=== PATIENT | female | born 1960 | race Caucasian/White ===

== ENCOUNTER 2017-08-22 16:52 | Emergency (ER) | payer OTHER ==
[2017-08-22 17:20] VITALS: BP 136/78; PULSE 85; TEMP 99.4; BMI 31.2
--- NOTE | 2017-08-22 17:20 | PDOC ---
Rapid Medical Evaluation Chief Complaint: Cold Symptoms Time Seen by Provider: 08/22/17 17:17 Medical Evaluation: Allergies Allergy/AdvReac Type Severity Reaction Status Date / Time No Known Allergies Allergy Verified 08/22/17 17:17 08/22/17 17:17 Pt presents to the ED with complaints of: cough, fever, headache and myalgia x 3 days On brief exam: vss, lcta, no erythema to soft palate Pt ordered for: influenza Pt to proceed to the ED Discharge Disposition - Diagnosis Cough - Referrals - Patient Instructions - Post Discharge Activity
--- NOTE | 2017-08-22 18:55 | PDOC ---
History of Present Illness - General Chief Complaint: Cold Symptoms Stated Complaint: FEVER/COUGHING Time Seen by Provider: 08/22/17 17:17 - History of Present Illness Initial Comments: 08/22/17 18:49 CHIEF COMPLAINT: cold symptoms HISTORY OF PRESENT ILLNESS: 56 yo F with hx of HTN presents to [facility] with cough, headache, body aches, and fever x 2 days. Patient denies any runny nose or sneezing. Patient's grandson has had similar symptoms although patient denies "getting this from him." Patient denies any fever, chills, nausea, vomiting, diarrhea, and reports that she did get the flu shot this year. PAST MEDICAL HISTORY: HTN FAMILY HISTORY: Denies SOCIAL HISTORY: Denies tobacco, alcohol, illicit drug use. SURGICAL HISTORY: Denies ALLERGIES: No known drug allergies REVIEW OF SYSTEMS General/Constitutional: Fever x 2 days, generalized malaise. HEENT: Denies change in vision. Denies ear pain or discharge. Denies sore throat. Cardiovascular: Denies chest pain or shortness of breath. Respiratory: Cough x 2 days. Denies wheezing, or hemoptysis. Gastrointestinal: Denies nausea, vomiting, diarrhea. Genitourinary: Denies dysuria, frequency, or change in urination. Musculoskeletal: Body aches. Denies joint or muscle swelling. Denies neck or back pain. Skin: Denies rash. Neurologic: Headache. Denies vertigo, loss of consciousness, or loss of sensation. PHYSICAL EXAM General Appearance: Well-appearing, appropriately dressed. No apparent distress. HEENT: Erythematous orpharynx. EOMI, PERRLA, normal ENT inspection, normal voice , TMs normal, pharynx normal. No conjunctival pallor. No photophobia, scleral icterus. Respiratory/Chest: Lungs CTAB. No shortness of breath, chest tenderness, respiratory distress, accessory muscle use. No crackles, rales, rhonchi, stridor , wheezing, dullness Cardiovascular: RRR. S1, S2. Gastrointestinal/Abdominal: Normal bowel sounds. Abdomen soft, non-distended. No tenderness or rebound tenderness. No organomegaly, pulsatile mass, guarding , hernia, hepatomegaly, splenomegaly. Musculoskeletal/Extremities: Normal inspection. FROM of all extremities, normal capillary refill. Pelvis Stable. No CVA tenderness. No tenderness to extremities, pedal edema, swelling, erythema or deformity. Integumentary: Appropriate color, dry, warm. No cyanosis, erythema, jaundice or rash Neurologic: protohistorian II-XII intact. Fully oriented, alert. Appropriate mood/affect. Motor strength 5/5. No appreciable EOM palsy, facial droop or sensory deficit. Past History - Past Medical History Allergies/Adverse Reactions: Allergies Allergy/AdvReac Type Severity Reaction Status Date / Time No Known Allergies Allergy Verified 08/22/17 17:17 Home Medications: Ambulatory Orders Sumatriptan Succinate [Imitrex] 50 mg PO PRN PRN 02/16/12 Hydrochlorothiazide 25 mg PO DAILY 03/04/13 Ibuprofen [Motrin] 600 mg PO TID #14 tablet 03/04/13 Ibuprofen 400 mg PO QID PRN #28 tablet 08/22/17 Oseltamivir Phosphate [Tamiflu] 75 mg PO BID #10 capsule 08/22/17 COPD: No HTN: Yes Other medical history: migraines - Suicide/Smoking/Psychosocial Hx Smoking Status: No Smoking History: Former smoker Have you smoked in the past 12 months: No Number of Cigarettes Smoked Daily: 0 Information on smoking cessation initiated: No Hx Alcohol Use: No Drug/Substance Use Hx: No Substance Use Type: None *Physical Exam - Vital Signs Last Vital Signs Temp Pulse Resp BP Pulse Ox 99.4 F 85 18 136/78 100 08/22/17 17:17 08/22/17 17:17 08/22/17 17:17 08/22/17 17:17 08/22/17 17:17 ED Treatment Course - ADDITIONAL ORDERS Additional order review: 08/22/17 17:17 Influenza Types A,B Antigen (JOVANY) - Final Nasopharyngeal Swab - Final Medical Decision Making - Medical Decision Making 08/22/17 18:55 56 yo F with hx of HTN presents to [facility] with cough, headache, body aches , and fever x 2 days. -flu swab patient positive for flu tamiflu rx sent to pharm Advised patient to take medication as prescribed and follow up with PCP next week. Advised patient of signs and symptoms for return to ED. Patient verbalized understanding and agrees to plan. *DC/Admit/Observation/Transfer Diagnosis at time of Disposition: Cough, Influenza - Discharge Dispostion Disposition: HOME Condition at time of disposition: Stable Admit: No - Prescriptions Prescriptions: Ibuprofen 400 mg PO QID PRN #28 tablet PRN Reason: Fever Oseltamivir Phosphate [Tamiflu] 75 mg PO BID #10 capsule - Referrals - Patient Instructions Printed Discharge Instructions: DI for Influenza -- Adult Additional Instructions: Please take medications as prescribed and follow up with your primary care doctor by the next of week. Please get plenty of rest and stay well hydrated. If you develop fever that is unrelieved by Motrin or Tylenol, persistent vomiting, diarrhea or any new or worsening symptoms, please return to the ER immediately. - Post Discharge Activity
== END 2017-08-22 19:04 | disposition home or self-care (01) ==
LOC: JERFT 16:52
DX: J10.1 Influenza due to other identified influenza virus with other respiratory manifestations (principal); I10 Essential (primary) hypertension
CPT/HCPCS: 87804; 99281-25

== ENCOUNTER 2017-08-26 17:37 | Emergency (ER) | payer OTHER ==
[2017-08-26 17:45] VITALS: BP 125/69; PULSE 88; TEMP 100.6; BMI 31.2
[2017-08-26] MEDS ORDERED: IBUPROFEN 600 MG TABLET (FP) PO ONE ×2 (17:45→18:08)
--- NOTE | 2017-08-26 17:45 | PDOC ---
Rapid Medical Evaluation Time Seen by Provider: 08/26/17 17:41 Medical Evaluation: Allergies Allergy/AdvReac Type Severity Reaction Status Date / Time No Known Allergies Allergy Verified 08/22/17 17:17 08/26/17 17:41 The patient presents with a chief complaint of: Diagnosed with flu on Friday. Had fevers yesterday up to 103. States that she is congested and having trouble breathing. Admits to coughing and body aches. Denies nausea and vomiting. I have performed a brief in-person evaluation of this patient; Pertinent physical exam findings: course lung sounds, temp 100.6 I have ordered the following: Motrin, CXR The patient will proceed to the ED for further evaluation.
[2017-08-26] MEDS ORDERED: ALBUTEROL SO4 2.5/IPRATROPIUM 0.5 INH SOL 3 ML VIAL.NEB. NEB ONE ×2 (18:08)
--- NOTE | 2017-08-26 18:11 | PDOC ---
History of Present Illness - General Chief Complaint: Cold Symptoms Stated Complaint: COLD SYMPTOMS,DIFF. BREATHING Time Seen by Provider: 08/26/17 17:41 History Source: Patient Exam Limitations: No Limitations - History of Present Illness Initial Comments: 08/26/17 18:06 56 yr female history of HTN, presents with cough for 3 days dx with influenza on 08/22/17 started tamilfu. Pt states cough is worse and feels SOB. no vomiting no chest pain. Timing/Duration: reports: getting worse Severity: reports: moderate Past History - Past Medical History Allergies/Adverse Reactions: Allergies Allergy/AdvReac Type Severity Reaction Status Date / Time No Known Allergies Allergy Verified 08/26/17 17:45 Home Medications: Ambulatory Orders Sumatriptan Succinate [Imitrex] 50 mg PO PRN PRN 02/16/12 Hydrochlorothiazide 25 mg PO DAILY 03/04/13 Ibuprofen [Motrin] 600 mg PO TID #14 tablet 03/04/13 Ibuprofen 400 mg PO QID PRN #28 tablet 08/22/17 Oseltamivir Phosphate [Tamiflu] 75 mg PO BID #10 capsule 08/22/17 Albuterol Sulfate Inhaler - [Ventolin HFA Inhaler -] 1 - 2 inh PO QID #1 inhaler 08/26/17 Azithromycin [Zithromax 250mg Tablets -] 250 mg PO UTDICT #6 tab 08/26/17 COPD: No (previous smoker 27yrs ago quit ) HTN: Yes Other medical history: migrane - Suicide/Smoking/Psychosocial Hx Smoking Status: No Smoking History: Never smoked Have you smoked in the past 12 months: No Number of Cigarettes Smoked Daily: 0 Information on smoking cessation initiated: No Hx Alcohol Use: No Drug/Substance Use Hx: No Substance Use Type: None Review of Systems - Review of Systems Able to Perform ROS?: Yes Is the patient limited Cambodian proficient: No Constitutional: Yes: Symptoms Reported, Fever Respiratory: Yes: Cough, Shortness of Breath, Productive cough *Physical Exam - Vital Signs Last Vital Signs Temp Pulse Resp BP Pulse Ox 100.6 F H 88 18 125/69 95 08/26/17 17:42 08/26/17 17:42 08/26/17 17:42 08/26/17 17:42 08/26/17 17:42 - Physical Exam General Appearance: Yes: Nourished, Appropriately Dressed HEENT: positive: EOMI, CLAUDIO, Normal ENT Inspection, TMs Normal, Pharynx Normal Neck: positive: Supple. negative: Lymphadenopathy (R), Lymphadenopathy (L) Respiratory/Chest: positive: Crackles (left lower base ) Cardiovascular: positive: Regular Rhythm, Regular Rate Gastrointestinal/Abdominal: positive: Normal Bowel Sounds, Soft Musculoskeletal: positive: Normal Inspection Extremity: positive: Normal Capillary Refill, Normal Inspection, Normal Range of Motion Integumentary: positive: Normal Color, Dry, Warm Neurologic: positive: bobbin fixer II-XII NML intact, Fully Oriented, Alert, Normal Mood/ Affect, Normal Response, Motor Strength 12/20 Medical Decision Making - Medical Decision Making 08/26/17 18:10 cc: cough short of breath dx with flu 4 days ago on tamiflu CXR ordered from E will give duoneb for coarse lung sounds and crackles to left lower base 08/26/17 19:09 pt feels better after the nebulizer cxr is negative for PNA will treat for bronchitis pt aware of plan all questions asked and answered understands to follow up with PMD as discussed. *DC/Admit/Observation/Transfer Diagnosis at time of Disposition: Bronchitis - Discharge Dispostion Disposition: HOME Condition at time of disposition: Good - Prescriptions Prescriptions: Albuterol Sulfate Inhaler - [Ventolin HFA Inhaler -] 1 - 2 inh PO QID #1 inhaler Azithromycin [Zithromax 250mg Tablets -] 250 mg PO UTDICT #6 tab - Referrals Referrals: STAFF,NOT ON [Primary Care Provider] - - Patient Instructions Additional Instructions: take the zpack as directed drink at least 2 liters of water a day take ibuprofen 600-800mg every 6-8hrs for fever and/or pain increase vitamin C and Zinc intake please see your primary care doctor in 1-2 days for follow up Return to ER for any worsening symptoms - Post Discharge Activity
== END 2017-08-26 19:10 | disposition home or self-care (01) ==
LOC: JERFT 17:37
PROC: 3E0F7GC Introduction of Other Therapeutic Substance into Respiratory Tract, Via Natural or Artificial Opening (ICD-10-PCS; principal; 2017-08-26)
DX: J40 Bronchitis, not specified as acute or chronic (principal)
CPT/HCPCS: 71046-TC; 94640; 99281-25

== ENCOUNTER 2018-08-04 04:55 | Emergency (ER) | payer OTHER ==
--- NOTE | 2018-08-04 05:26 | PDOC ---
History of Present Illness - General Chief Complaint: Pain Stated Complaint: FEVER,ABD PAIN Time Seen by Provider: 08/04/18 05:25 - History of Present Illness Initial Comments: 08/04/18 06:36 The patient is a 57 year old female with a history of HTN who presents for evaluation of fever, body aches, diarrhea, abdominal pain. The patient notes a 1 day history of fever, body aches, diarrhea, and crampy upper abdominal pain prompting her presentation to the ED for further evaluation. She notes that her [id number] is ill with similar symptoms including a cough as well. She endorses some mild headache and chills as well. The patient otherwise denies SOB, chest pain, cough, nausea, vomiting, or changes with urination or bowel movements. Past History - Past Medical History Allergies/Adverse Reactions: Allergies Allergy/AdvReac Type Severity Reaction Status Date / Time No Known Allergies Allergy Verified 08/04/18 05:31 Home Medications: Ambulatory Orders Sumatriptan Succinate [Imitrex] 50 mg PO PRN PRN 02/16/12 Hydrochlorothiazide 25 mg PO DAILY 03/04/13 Albuterol Sulfate Inhaler - [Ventolin HFA Inhaler -] 1 - 2 inh PO QID #1 inhaler 08/26/17 COPD: No (previous smoker 27yrs ago quit ) HTN: Yes - Suicide/Smoking/Psychosocial Hx Smoking Status: No Smoking History: Never smoked Have you smoked in the past 12 months: No Number of Cigarettes Smoked Daily: 0 Hx Alcohol Use: No Drug/Substance Use Hx: No Substance Use Type: None Review of Systems - Review of Systems Comments:: 08/04/18 06:38 Constitutional: Fevers, chills, fatigue, malaise HEENT: No Rhinorrhea, nasal congestion, visual changes, or Neck [place] Cardiovascular: No chest pain, syncope, palpitations, lightheadedness Respiratory: No Cough, SOB, Hemoptysis, Gastrointestinal: Abdominal cramping, Diarrhea. No Nausea, Vomiting, Constipation, Melena Genitourinary: No Dysuria, Frequency, Urgency, Hesitancy, Hematuria, Flank pain Musculoskeletal: No Myalgia, arthralgia Skin: No rashes, itching, bruising, pallor Neurologic: Headache. No Dizziness, Numbness, Weakness, or Tingling Psychiatric: No Hallucinations. No SI or HI *Physical Exam - Physical Exam Comments: 08/04/18 06:39 General Appearance: Nourished. No Apparent Distress HEENT: No Pharyngeal Erythema, Tonsillar Exudate, Tonsillar Erythema Neck: Neck is supple. No Cervical Lymphadenopathy Respiratory/Chest: Lungs Clear, Normal Breath Sounds. No Crackles, Rales, Rhonchi, Wheezing Cardiovascular: Regular Rhythm, Regular Rate. No Murmur, Gallops, Rubs Gastrointestinal/Abdominal: Normal Bowel Sounds, Soft. No Guarding, Rebound, Tenderness Musculoskeletal: No CVA Tenderness Extremity: Normal Capillary Refill Integumentary: Normal Color, Dry, Warm Neurologic: Fully Oriented, Alert, Normal Mood/Affect, Normal Response, ED Treatment Course - LABORATORY CBC & Chemistry Diagram: 08/04/18 05:20 08/04/18 05:20 Medical Decision Making - Medical Decision Making 08/04/18 06:40 The patient is a 57 year old female with a history of HTN who presents for evaluation of fever, body aches, diarrhea, abdominal pain. Differential includes but is not limited to: Influenza, UTI, Pneumonia, Gastroenteritis, Infectious, Metabolic Derangement. Given the patient's history and physical exam, her symptoms appear very viral in nature. However, we will obtain a cbc, cmp, lipase, ua, influenza swab to evaluate further. We will treat the patient with iv fluids, pepcid, mylanta, tylenol and continue to monitor and reassess while here in the ED. 08/04/18 06:55 Patient signed out to the day team pending lab results and gallbladder US and reassessment prior to dispo. *DC/Admit/Observation/Transfer Diagnosis at time of Disposition: Gastroenteritis and colitis, viral - Discharge Dispostion Disposition: HOME Condition at time of disposition: Improved - Referrals Referrals: Shravan Edmond MD [Staff Physician] - - Patient Instructions Printed Discharge Instructions: Viral Gastroenteritis, DI for Viral Gastroenteritis -- Adult Additional Instructions: Please follow up with your GI doctor in the next few weeks. Please return if you have any new, worsening or concerning symptoms, especially pain and increasing fever. - Post Discharge Activity
[2018-08-04 05:30] VITALS: BMI 30.7
[2018-08-04] MEDS ORDERED: SODIUM CHLORIDE 1,000 ML IV STA (05:53)
[2018-08-04] MEDS ORDERED: ACETAMINOPHEN 1000 MG/100 ML VIAL (NON FORMULARY) IVPB ONE (05:53)
[2018-08-04] MEDS ORDERED: ACETAMINOPHEN INJECTION 100 ML IVPB ONE (06:22)
[2018-08-04] MEDS ORDERED: MAG HYDROX/AL HYDROX/SIMETH 30 ML UNIT-DOSE CUP PO ONE (06:39)
[2018-08-04] MEDS ORDERED: FAMOTIDINE 20 MG/50 ML IVPB 20 MG/50 ML MG IVPB ONE ×2 (06:39→06:58)
[2018-08-04 06:47] LABS: BASO % 0.2 % (0-2.0); HEMOGLOBIN 13.8 GM/dL (10.7-15.3); LYMPH % 9.1 % (8-40); MCH 32.3 pg (25.7-33.7); MCHC 35.4 g/dl (32.0-36.0); MEAN CELL VOLUME 91.1 fl (80-96); MEAN PLT VOLUME 8.4 fl (7.5-11.1); MONO % 4.6 % (3.8-10.2); NEUT % 86.1 % (42.8-82.8); PLATELET COUNT 165 K/MM3 (134-434); RBC 4.28 M/mm3 (3.60-5.2); WHITE BLOOD COUNT 11.1 K/mm3 (4.0-10.0)
--- NOTE | 2018-08-04 06:55 | PDOC ---
Attending Attestation - Resident Resident Name: Se Ferrara - ED Attending Attestation I have performed the following: I have examined & evaluated the patient, The case was reviewed & discussed with the resident, I agree w/resident's findings & plan, Exceptions are as noted - HPI HPI: 08/04/18 06:55 57 F with h/o HTN presents to ED with fevers, bodyaches, diarrhea, and abdominal pain. Pt states that this all started yesterday. She reports watery brown diarrhea with abdominal cramps. The pain is localized to her epigastrum. Denies N/V. Denies CP/SOB. Denies dysuria. - Physicial Exam PE: 08/04/18 06:56 "GENERAL: Awake, alert, and fully oriented, in no acute distress. HEAD: No signs of trauma EYES: PERRLA, EOMI, sclera anicteric, conjunctiva clear ENT: Auricles normal inspection, hearing grossly normal, nares patent, oropharynx clear without exudates. Moist mucosa NECK: Nontender, no stepoffs, Normal ROM, supple, no lymphadenopathy, JVD, or masses LUNGS: Breath sounds equal, clear to auscultation bilaterally. No wheezes, and no crackles HEART: Regular rate and rhythm, normal S1 and S2, no murmurs, rubs or gallops ABDOMEN: + epigastric tenderness, no rebound/guarding, negative santana's, no CVAT EXTREMITIES: Normal range of motion, no edema. No clubbing or cyanosis. No cords, erythema, or tenderness NEUROLOGICAL: Cranial nerves II through XII intact. 5/5 strength and sensation in all extremities, Normal speech, normal gait, normal cerebellar function SKIN: Warm, Dry, normal turgor, no rashes or lesions noted. - Medical Decision Making 08/04/18 06:57 57 F with fevers, bodyaches, diarrhea. Likely viral illness. Will check labs, urine, and CXR to r/o other infectious process. - Labs - CXR, UA - IVF, tylenol - RUQ sono to r/o chad Pt signed out to oncoming attending, pending labs, US, and re-evaluation
[2018-08-04] MEDS ORDERED: MAG HYDROX/AL HYDROX/SIMETH 30 ML UNIT-DOSE CUP ONE (06:58)
[2018-08-04 07:31] LABS: ALBUMIN 3.6 g/dl (3.4-5.0); ALK PHOS 68 U/L (45-117); ANION GAP 9 MMOL/L (8-16); BILIRUBIN,TOTAL 0.7 mg/dL (0.2-1); BLOOD UREA NITROGEN 14 mg/dL (7-18); CALCIUM 8.4 mg/dL (8.5-10.1); CHLORIDE 100 mmol/L (98-107); CO2 27 mmol/L (21-32); CREATININE 0.9 mg/dL (0.55-1.3); GLUCOSE,RANDOM 128 mg/dL (74-106); LIPASE 104 U/L (73-393); POTASSIUM 3.2 mmol/L (3.5-5.1); SGOT/AST 34 U/L (15-37); SGPT/ALT 36 U/L (13-61); SODIUM 135 mmol/L (136-145); TOT PROT 7.5 g/dl (6.4-8.2)
[2018-08-04 08:06] LABS: URINE APPEARANCE SLCLOUDY; URINE BILIRUBIN NEGATIVE (<2.0 mg/dL); URINE COLOR DKYELLOW; URINE GLUCOSE (UA) NEGATIVE (NEGATIVE); URINE KETONE 1+ (NEGATIVE); URINE LEUK ESTERASE NEGATIVE (NEGATIVE); URINE NITRITE NEGATIVE (NEGATIVE); URINE PROTEIN 1+ (NEGATIVE); URINE UROBILINOGEN NEGATIVE mg/dL (0.2-1.0)
--- NOTE | 2018-08-04 08:38 | PDOC ---
*Physical Exam - Vital Signs Last Vital Signs Temp Pulse Resp BP Pulse Ox 102.2 F H 108 H 20 134/77 96 08/04/18 04:55 08/04/18 04:55 08/04/18 04:55 08/04/18 04:55 08/04/18 06:32 - Physical Exam General Appearance: Yes: Nourished HEENT: positive: CLAUDIO Neck: positive: Trachea midline Respiratory/Chest: positive: Lungs Clear, Normal Breath Sounds Cardiovascular: positive: Regular Rhythm, Regular Rate, S1, S2 Gastrointestinal/Abdominal: positive: Normal Bowel Sounds, Tender (mild epigastric ttp neg tubbs's), Flat, Soft Musculoskeletal: positive: Normal Inspection. negative: CVA Tenderness Extremity: positive: Normal Capillary Refill, Normal Inspection Integumentary: positive: Normal Color, Dry, Warm Neurologic: positive: aviation boatswain's mate II-XII NML intact, Fully Oriented, Alert ED Treatment Course - LABORATORY CBC & Chemistry Diagram: 08/04/18 05:20 08/04/18 05:20 - ADDITIONAL ORDERS Additional order review: Laboratory Results 08/04/18 05:20 Sodium 135 L Potassium 3.2 L Chloride 100 Carbon Dioxide 27 Anion Gap 9 BUN 14 Creatinine 0.9 Creat Clearance w eGFR > 60 Random Glucose 128 H Calcium 8.4 L Total Bilirubin 0.7 AST 34 ALT 36 Alkaline Phosphatase 68 Total Protein 7.5 Albumin 3.6 Lipase 104 08/04/18 05:20 RBC 4.28 MCV 91.1 MCHC 35.4 RDW 13.0 MPV 8.4 Neutrophils % 86.1 H D Lymphocytes % 9.1 D Monocytes % 4.6 Eosinophils % 0.0 D Basophils % 0.2 - Medications Given in the ED: ED Medications Discontinued Medications Generic Name Dose Route Start Last Admin Trade Name Freq PRN Reason Stop Dose Admin Acetaminophen 1,000 mg 08/04/18 05:53 08/04/18 06:28 Ofirmev Injection - IVPB 08/04/18 05:54 1,000 mg ONCE ONE Administration Al Hydroxide/Mg Hydroxide 30 ml 08/04/18 06:39 08/04/18 07:01 Mylanta Oral Suspension - PO 08/04/18 06:40 30 ml ONCE ONE Administration Sodium Chloride 1,000 mls @ 1,000 mls/hr 08/04/18 05:53 12/18/18 06:28 Normal Saline - IV 08/04/18 06:52 1,000 mls/hr ASDIR STA Administration Famotidine/Sodium Chloride 20 mg in 50 mls @ 100 mls/hr 08/04/18 06:39 07:01 Pepcid 20 Mg Premixed Ivpb - IVPB 08/04/18 07:08 100 mls/hr ONCE ONE Administration Medical Decision Making - Medical Decision Making 08/04/18 08:31 57-year-old female no past medical history here today complaining of fever cramping epigastric abdominal pain and diarrhea. Patient states she's had 3-4 loose stools a day all nonbloody nonbilious no recent travel no recent antibiotic use patient does have a sick contact of a young child with a viral URI. Patient was signed out to me by the overnight physician Dr. Mccain. Pending lab results and urinalysis. On exam she is awake alert no acute distress overall feels much improved has minimal epigastric tenderness on exam a negative Tubbs's. No CVA tenderness otherwise unremarkable abdominal exam cardiac lung exam is unremarkable as well Labs reviewed patient has a min elevated wbc 11. and normal lipase and normal LFTs. Urinalysis is pending Focus ED ultrasound right upper quadrant was obtained, indication: epigastric pain, fever findings: phased array probe used to scan the gallbladder into planes gallbladder is normal without gallbladder wall thickening, edema, pericholecystic fluid, or stones. Negative sonographic Tubbs's. Anterior Gallbladder wall measures 1.8 mm. CBD measures 2.8 mm. Impression: normal gallbladder Pending urinalysis if negative will DC patient home 08/04/18 08:39 *DC/Admit/Observation/Transfer Diagnosis at time of Disposition: Gastroenteritis and colitis, viral - Discharge Dispostion Condition at time of disposition: Improved - Referrals Referrals: ON STAFF,NOT [Primary Care Provider] - - Patient Instructions - Post Discharge Activity Procedures - Bedside Ultrasound Bedside Ultrasound: Gallbladder Other: see MDM cont care for impression findings
[2018-08-04 08:40] LABS: EPI CELLS RARE /HPF (FEW); URINE HYALINE CAST 1 /lpf; URINE MUCUS MODERATE
--- NOTE | 2018-08-04 09:24 | PDOC ---
*Physical Exam - Vital Signs Last Vital Signs Temp Pulse Resp BP Pulse Ox 102.2 F H 108 H 20 134/77 96 08/04/18 04:55 08/04/18 04:55 08/04/18 04:55 08/04/18 04:55 08/04/18 06:32 ED Treatment Course - LABORATORY CBC & Chemistry Diagram: 08/04/18 05:20 08/04/18 05:20 - ADDITIONAL ORDERS Additional order review: Laboratory Results 08/04/18 08/04/18 07:51 05:20 Sodium 135 L Potassium 3.2 L Chloride 100 Carbon Dioxide 27 Anion Gap 9 BUN 14 Creatinine 0.9 Creat Clearance w eGFR > 60 Random Glucose 128 H Calcium 8.4 L Total Bilirubin 0.7 AST 34 ALT 36 Alkaline Phosphatase 68 Total Protein 7.5 Albumin 3.6 Lipase 104 Urine Color Dkyellow Urine Appearance Slcloudy Urine pH 5.0 Ur Specific [place] 1.026 Urine Protein 1+ H Urine Glucose (UA) Negative Urine Ketones 1+ H Urine Blood 3+ H Urine Nitrite Negative Urine Bilirubin Negative Urine Urobilinogen Negative Ur Leukocyte Esterase Negative Urine WBC (Auto) 6 Urine RBC (Auto) 24 Ur Epithelial Cells Rare Hyaline Casts 1 Urine Mucus Moderate 08/04/18 05:20 RBC 4.28 MCV 91.1 MCHC 35.4 RDW 13.0 MPV 8.4 Neutrophils % 86.1 H D Lymphocytes % 9.1 D Monocytes % 4.6 Eosinophils % 0.0 D Basophils % 0.2 - RADIOLOGY Radiology Studies Ordered: Category Date Time Status SPIRAL- RENAL-STONE CT [CT] Stat CT Scan 08/04/18 09:22 Ordered - Medications Given in the ED: ED Medications Discontinued Medications Generic Name Dose Route Start Last Admin Trade Name Pericoq PRN Reason Stop Dose Admin Acetaminophen 1,000 mg 08/04/18 05:53 08/04/18 06:28 Ofirmev Injection - IVPB 08/04/18 05:54 1,000 mg ONCE ONE Administration Al Hydroxide/Mg Hydroxide 30 ml 08/04/18 06:39 08/04/18 07:01 Mylanta Oral Suspension - PO 08/04/18 06:40 30 ml ONCE ONE Administration Sodium Chloride 1,000 mls @ 1,000 mls/hr 08/04/18 05:53 08/04/18 06:28 Normal Saline - IV 08/04/18 06:52 1,000 mls/hr ASDIR STA Administration Famotidine/Sodium Chloride 20 mg in 50 mls @ 100 mls/hr 08/04/18 06:39 07:01 Pepcid 20 Mg Premixed Ivpb - IVPB 08/04/18 07:08 100 mls/hr ONCE ONE Administration Medical Decision Making - Medical Decision Making 08/04/18 09:[address] Ferrara. Patient is 57F with bodyaches, fevers, and abdominal pain. No dysuria. POCUS with Dr Wu showed normal appearing gallbladder with no sonographic murphys, no gallstones, normal gallbladder thickness, no pericholecystic fluid, normal cbd diameter. UA shows hematuria, no signs of infection. Pain reassessed, soft and nontender abdomen, pain has improved. Will do ct to rule out kidney stone, as a stone complicated by fever would be troubling. Spiral CT ordered. 08/04/18 14:[address] shows abnormality, likely in lumen, in RLQ with surrounding lymph node enlargement. CT with IV/PO contrast ordered. Concern for possible ca vs appendicitis. 08/04/18 16:04 CT scan shows possible adenitis, colitis or possible polyp. Patient reports history of polyps, has own GI follow up. Will discharge with diagnosis of viral syndrome. Importance of follow up stressed. Patient complaining of minor headache. Giving tylenol before discharge. Tolerating PO. *DC/Admit/Observation/Transfer Diagnosis at time of Disposition: Gastroenteritis and colitis, viral - Discharge Dispostion Disposition: HOME Condition at time of disposition: Improved Decision to Admit order: No - Referrals Referrals: Shravan Edmond MD [Staff Physician] - - Patient Instructions Printed Discharge Instructions: Viral Gastroenteritis, DI for Viral Gastroenteritis -- Adult Additional Instructions: Please follow up with your GI doctor in the next few weeks. Please return if you have any new, worsening or concerning symptoms, especially pain and increasing fever. - Post Discharge Activity
[2018-08-04] MEDS ORDERED: ACETAMINOPHEN 325 MG TABLET (FP) PO ONE (16:08)
[2018-08-04] MEDS ORDERED: ACETAMINOPHEN 325 MG TABLET (FP) ONE (16:10)
[2018-08-04 16:21] VITALS: BP 129/77; PULSE 84; TEMP 98.7
== END 2018-08-04 16:21 | disposition home or self-care (01) ==
LOC: JER 04:55
PROC: 3E033GC Introduction of Other Therapeutic Substance into Peripheral Vein, Percutaneous Approach (ICD-10-PCS; principal; 2018-08-04)
PROC: 3E033NZ Introduction of Analgesics, Hypnotics, Sedatives into Peripheral Vein, Percutaneous Approach (ICD-10-PCS; 2018-08-04)
PROC: 3E0337Z Introduction of Electrolytic and Water Balance Substance into Peripheral Vein, Percutaneous Approach (ICD-10-PCS; 2018-08-04)
DX: A08.4 Viral intestinal infection, unspecified (principal); I10 Essential (primary) hypertension
CPT/HCPCS: 36415; 71045-TC-FY; 74176; 74177-TC; 80053; 81003; 81015; 83690; 85025; 87804; 99284-25; J0131; J7030

== ENCOUNTER 2021-05-12 12:36 | Emergency (ER) | payer OTHER ==
[2021-05-12 12:47] VITALS: BP 157/79; PULSE 76; TEMP 98.6; BMI 32.9
[2021-05-12] MEDS ORDERED: SODIUM CHLORIDE 0.9% 500 ML INFUS.BAG IV ONE (14:18)
[2021-05-12] MEDS ORDERED: KETOROLAC TROMETHAMINE 30 MG/1 ML VIAL IVPUSH ONE (14:18)
[2021-05-12] MEDS ORDERED: KETOROLAC TROMETHAMINE 30 MG/1 ML VIAL ONE (14:29)
[2021-05-12 14:51] LABS: BASO % 0.9 % (0-2.0); EOS % 1.5 % (0-4.5); HEMATOCRIT 40.7 % (32.4-45.2); HEMOGLOBIN 13.9 GM/dL (10.7-15.3); LYMPH % 39.6 % (8-40); MCH 31.8 pg (25.7-33.7); MCHC 34.1 g/dl (32.0-36.0); MEAN CELL VOLUME 93.4 fl (80-96); MEAN PLT VOLUME 8.2 fl (7.5-11.1); MONO % 6.8 % (3.8-10.2); NEUT % 51.2 % (42.8-82.8); PLATELET COUNT 152 10^3/uL (134-434); RBC 4.35 M/mm3 (3.60-5.2); RDW 13.4 % (11.6-15.6); WHITE BLOOD COUNT 7.3 K/mm3 (4.0-10.0)
[2021-05-12 15:05] LABS: PH,URINE 7.5 (5.0-8.0); URINE APPEARANCE CLEAR; URINE BILIRUBIN NEGATIVE (NEGATIVE); URINE COLOR YELLOW; URINE GLUCOSE (UA) NEGATIVE (NEGATIVE); URINE KETONE NEGATIVE (NEGATIVE); URINE LEUK ESTERASE NEGATIVE (NEGATIVE); URINE NITRITE NEGATIVE (NEGATIVE); URINE PROTEIN NEGATIVE (NEGATIVE)
[2021-05-12 15:15] LABS: CALCIUM 9.4 mg/dL (8.5-10.1)
[2021-05-12 15:16] LABS: ALBUMIN 3.8 g/dl (3.4-5.0); BLOOD UREA NITROGEN 15.2 mg/dL (7-18)
[2021-05-12 15:19] LABS: CREATININE 0.6 mg/dL (0.55-1.3)
[2021-05-12 15:21] LABS: TOT PROT 7.7 g/dl (6.4-8.2)
[2021-05-12 15:24] LABS: BILIRUBIN,TOTAL 0.4 mg/dL (0.2-1)
== END 2021-05-12 16:32 | disposition home or self-care (01) ==
LOC: MERGE 12:36 → JER 12:36
PROC: 3E0333Z Introduction of Anti-inflammatory into Peripheral Vein, Percutaneous Approach (ICD-10-PCS; principal; 2021-05-12)
DX: S29.012A Strain of muscle and tendon of back wall of thorax, initial encounter (principal)
CPT/HCPCS: 36415; 74176-TC; 80053; 81003; 85025; 87086; 99284-25

== ENCOUNTER 2022-04-21 21:54 | Emergency (ER) | payer OTHER ==
[2022-04-21 22:00] VITALS: BP 152/87; PULSE 98; RESP 19; TEMP 100.8; BMI 31.8
== END 2022-04-21 23:56 | disposition home or self-care (01) ==
LOC: JER 21:54 → JERFT 21:54 → JER 23:56
DX: U07.1 COVID-19 (principal)
CPT/HCPCS: 0241U-QW; 99283-25

== ENCOUNTER 2023-04-28 20:49 | Emergency (ER) | payer OTHER ==
[2023-04-28 20:55] VITALS: BMI 30.8
[2023-04-28] MEDS ORDERED: SODIUM CHLORIDE 2,150 ML IV ONE (21:23)
[2023-04-28] MEDS ORDERED: ACETAMINOPHEN 1000 MG/100 ML BAG IVPB ONE (21:23)
[2023-04-28] MEDS ORDERED: ONDANSETRON 4 MG/2 ML VIAL IVPUSH ONE (21:23)
[2023-04-28] MEDS ORDERED: ACETAMINOPHEN INJECTION 100 ML IVPB ONE ×2 (22:25→22:42)
[2023-04-28] MEDS ORDERED: ONDANSETRON 4 MG/2 ML VIAL ONE (22:25)
[2023-04-28 22:41] LABS: BASO % 0.5 % (0-2.0); HEMOGLOBIN 14.9 GM/dL (10.7-15.3); LYMPH % 15.2 % (8-40); MCH 31.8 pg (25.7-33.7); MCHC 34.7 g/dl (32.0-36.0); MEAN CELL VOLUME 91.7 fl (80-96); MEAN PLT VOLUME 8.5 fl (7.5-11.1); MONO % 10.4 % (3.8-10.2); NEUT % 73.9 % (42.8-82.8); PLATELET COUNT 114 10^3/uL (134-434); RBC 4.69 M/mm3 (3.60-5.2); RDW 13.2 % (11.6-15.6); WHITE BLOOD COUNT 7.1 K/mm3 (4.0-10.0)
[2023-04-28 22:44] LABS: EPI CELLS >36 /uL (0-25.1); HYALINE CASTS 2 /uL (0-3.1); PH,URINE 5.5 (5.0-8.0); URINE APPEARANCE CLEAR; URINE BACTERIA 69 /uL (0-1359); URINE BILIRUBIN NEGATIVE (NEGATIVE); URINE COLOR YELLOW; URINE GLUCOSE (UA) NEGATIVE (NEGATIVE); URINE KETONE 1+ (NEGATIVE); URINE LEUK ESTERASE NEGATIVE (NEGATIVE); URINE NITRITE NEGATIVE (NEGATIVE); URINE PROTEIN 3+ (NEGATIVE); URINE RBC 504 /uL (0-23.9); URINE WBC 25 /uL (0-25.8)
[2023-04-28 22:46] LABS: VENOUS BASE EXCESS 1.8 mmol/L (-2-2); VENOUS O2 SATURATION 70.2 % (70-80); VENOUS PCO2 37.4 mmHg (38-52); VENOUS PH 7.451 (7.310-7.410)
[2023-04-28 23:09] VITALS: PULSE 92; RESP 18; TEMP 100.7
[2023-04-28 23:32] LABS: INR 1.36 (0.83-1.09); PROTHROMBIN TIME (PATIENT) 15.7 SEC (9.7-13.0)
[2023-04-28 23:48] LABS: CHLORIDE 104 mmol/L (98-107); POTASSIUM 3.2 mmol/L (3.5-5.1); SODIUM 140 mmol/L (136-145)
[2023-04-28 23:51] LABS: CALCIUM 8.7 mg/dL (8.5-10.1)
[2023-04-28 23:52] LABS: ALBUMIN 3.9 g/dl (3.4-5.0); ANION GAP 10 MMOL/L (8-16); BLOOD UREA NITROGEN 14.4 mg/dL (7-18); CO2 25 mmol/L (21-32); GLUCOSE,RANDOM 134 mg/dL (74-106); LIPASE 195 U/L (73-393); MAGNESIUM 1.9 mg/dL (1.8-2.4)
[2023-04-28 23:54] LABS: CREATININE 0.9 mg/dL (0.55-1.3); SGPT/ALT 72 U/L (13-61)
[2023-04-28 23:55] LABS: SGOT/AST 78 U/L (15-37)
[2023-04-28 23:56] LABS: TOT PROT 8.3 g/dl (6.4-8.2)
[2023-04-28 23:57] LABS: ALK PHOS 96 U/L (45-117)
[2023-04-29 00:40] VITALS: BP 112/68
[2023-04-29] MEDS ORDERED: IBUPROFEN 400 MG TABLET (FP) PO ONE ×2 (04:53→04:55)
== END 2023-04-29 05:04 | disposition home or self-care (01) ==
LOC: JER 20:49
PROC: 3E033NZ Introduction of Analgesics, Hypnotics, Sedatives into Peripheral Vein, Percutaneous Approach (ICD-10-PCS; principal; 2023-04-28)
PROC: 3E033GC Introduction of Other Therapeutic Substance into Peripheral Vein, Percutaneous Approach (ICD-10-PCS; 2023-04-28)
PROC: 3E0337Z Introduction of Electrolytic and Water Balance Substance into Peripheral Vein, Percutaneous Approach (ICD-10-PCS; 2023-04-28)
DX: R51.9 Headache, unspecified (principal); R50.9 Fever, unspecified; U07.1 COVID-19; K59.00 Constipation, unspecified
CPT/HCPCS: 0241U-QW; 36415; 71045-TC-FY; 74176-TC; 80053; 81003; 82550; 82553; 82803; 83605; 83690; 83735; 84484; 85025; 85610; 85730; 86850; 86900; 86901; 87040; 87086; 93005; 93010; 99285-25

== ENCOUNTER 2023-07-01 08:41 | Emergency (ER) | payer OTHER ==
[2023-07-01 08:45] VITALS: BP 161/85; PULSE 66; RESP 18; TEMP 98.2; BMI 30.7
[2023-07-01] MEDS ORDERED: ACETAMINOPHEN 1000 MG/100 ML BAG IVPB ONE (09:07)
[2023-07-01] MEDS ORDERED: SODIUM CHLORIDE 0.9% 500 ML INFUS.BAG IV ONE (09:07)
[2023-07-01] MEDS ORDERED: KETOROLAC TROMETHAMINE 15 MG/ML VIAL IVPUSH ONE (09:07)
[2023-07-01] MEDS ORDERED: ACETAMINOPHEN INJECTION 100 ML IVPB ONE (09:41)
[2023-07-01] MEDS ORDERED: KETOROLAC TROMETHAMINE 15 MG/ML VIAL ONE (09:41)
[2023-07-01 10:14] LABS: BASO % 0.7 % (0-2.0); EOS % 1.2 % (0-4.5); HEMATOCRIT 41.5 % (32.4-45.2); HEMOGLOBIN 14.2 GM/dL (10.7-15.3); MCH 31.6 pg (25.7-33.7); MCHC 34.2 g/dl (32.0-36.0); MEAN CELL VOLUME 92.3 fl (80-96); MEAN PLT VOLUME 8.3 fl (7.5-11.1); MONO % 5.6 % (3.8-10.2); NEUT % 53.5 % (42.8-82.8); PLATELET COUNT 150 10^3/uL (134-434); RBC 4.49 M/mm3 (3.60-5.2); RDW 13.3 % (11.6-15.6); WHITE BLOOD COUNT 6.8 K/mm3 (4.0-10.0)
[2023-07-01 10:15] LABS: EPI CELLS 10 /uL (0-25.1); HYALINE CASTS 0 /uL (0-3.1); URINE APPEARANCE CLEAR; URINE BACTERIA 66 /uL (0-1359); URINE BILIRUBIN NEGATIVE (NEGATIVE); URINE COLOR YELLOW; URINE GLUCOSE (UA) NEGATIVE (NEGATIVE); URINE KETONE NEGATIVE (NEGATIVE); URINE LEUK ESTERASE TRACE (NEGATIVE); URINE NITRITE NEGATIVE (NEGATIVE); URINE PROTEIN TRACE (NEGATIVE); URINE RBC 28 /uL (0-23.9); URINE WBC 10 /uL (0-25.8)
[2023-07-01 10:38] LABS: POTASSIUM 3.4 mmol/L (3.5-5.1)
[2023-07-01 10:39] LABS: CALCIUM 8.7 mg/dL (8.5-10.1)
[2023-07-01 10:40] LABS: ALBUMIN 3.9 g/dl (3.4-5.0); BLOOD UREA NITROGEN 13.5 mg/dL (7-18)
[2023-07-01 10:43] LABS: CREATININE 0.7 mg/dL (0.55-1.3)
[2023-07-01 10:45] LABS: BILIRUBIN,TOTAL 0.7 mg/dL (0.2-1); TOT PROT 7.9 g/dl (6.4-8.2)
[2023-07-01] MEDS ORDERED: POTASSIUM CHLORIDE ORAL LIQUID 20 MEQ/15 ML PO ONE (10:52)
[2023-07-01] MEDS ORDERED: POTASSIUM CHLORIDE ORAL LIQUID 20 MEQ/15 ML ONE (11:43)
== END 2023-07-01 11:52 | disposition home or self-care (01) ==
LOC: JER 08:41
PROC: 3E033NZ Introduction of Analgesics, Hypnotics, Sedatives into Peripheral Vein, Percutaneous Approach (ICD-10-PCS; principal; 2023-07-01)
PROC: 3E0333Z Introduction of Anti-inflammatory into Peripheral Vein, Percutaneous Approach (ICD-10-PCS; 2023-07-01)
DX: R10.12 Left upper quadrant pain (principal); R35.0 Frequency of micturition; N39.0 Urinary tract infection, site not specified
CPT/HCPCS: 36415; 74176-TC; 80053; 81003; 85025; 87086; 99284-25

== ENCOUNTER 2023-09-28 06:47 | Emergency (ER) | payer OTHER ==
[2023-09-28 06:54] VITALS: RESP 18; TEMP 97.8; BMI 30.7
[2023-09-28] MEDS ORDERED: ACETAMINOPHEN INJECTION 100 ML IVPB ONE (08:03)
[2023-09-28] MEDS ORDERED: LIDOCAINE 4% PATCH TP ONE (08:03)
[2023-09-28 08:29] LABS: INR 1.2 (0.83-1.09); PROTHROMBIN TIME (PATIENT) 13.9 SEC (9.7-13.0)
[2023-09-28 08:32] LABS: ACTIVATED PTT 31.9 SECONDS (25.2-36.5)
[2023-09-28 08:33] LABS: BASO % 0.6 % (0-2.0); HEMATOCRIT 37.4 % (32.4-45.2); HEMOGLOBIN 12.7 GM/dL (10.7-15.3); MCH 31.9 pg (25.7-33.7); MCHC 33.8 g/dl (32.0-36.0); MEAN CELL VOLUME 94.2 fl (80-96); MEAN PLT VOLUME 7.8 fl (7.5-11.1); MONO % 6.9 % (3.8-10.2); NEUT % 51.5 % (42.8-82.8); PLATELET COUNT 130 10^3/uL (134-434); RBC 3.97 M/mm3 (3.60-5.2); RDW 13.7 % (11.6-15.6); WHITE BLOOD COUNT 6.7 K/mm3 (4.0-10.0)
[2023-09-28] MEDS: ACETAMINOPHEN 1000 MG/100 ML BAG IVPB ONE (08:36)
[2023-09-28] MEDS: LIDOCAINE 4% PATCH TP ONE (08:36)
[2023-09-28 08:48] LABS: POTASSIUM 3.9 mmol/L (3.5-5.1)
[2023-09-28 08:50] LABS: ALBUMIN 3.4 g/dl (3.4-5.0); CALCIUM 8.2 mg/dL (8.5-10.1)
[2023-09-28 08:53] LABS: CREATININE 0.7 mg/dL (0.55-1.3)
[2023-09-28 08:55] LABS: BILIRUBIN,TOTAL 0.3 mg/dL (0.2-1)
[2023-09-28 11:09] VITALS: BP 160/90; PULSE 65
[2023-09-28] MEDS: CODEINE SO4 30 MG TABLET PO ONE (11:23)
[2023-09-28] MEDS ORDERED: LIDOCAINE PATCH REMOVAL MC SCH (22:00)
== END 2023-09-28 11:37 | disposition home or self-care (01) ==
LOC: JER 06:47
PROC: 3E033NZ Introduction of Analgesics, Hypnotics, Sedatives into Peripheral Vein, Percutaneous Approach (ICD-10-PCS; principal; 2023-09-28)
DX: M79.602 Pain in left arm (principal); Z20.822 Contact with and (suspected) exposure to COVID-19
CPT/HCPCS: 0241U-QW; 36415; 71045-TC-FY; 80053; 83735; 84484; 85025; 85610; 85730; 93005; 93010; 99285-25; J0131

== ENCOUNTER 2023-10-03 11:35 | Emergency (ER) | payer OTHER ==
[2023-10-03 11:57] VITALS: BP 138/69; PULSE 75; RESP 16; TEMP 98.4; BMI 67.6
[2023-10-03] MEDS ORDERED: ACETAMINOPHEN 325 MG TABLET (FP) ONE (12:57)
[2023-10-03] MEDS ORDERED: KETOROLAC TROMETHAMINE 30 MG/1 ML VIAL ONE (12:57)
[2023-10-03] MEDS: KETOROLAC TROMETHAMINE 30 MG/1 ML VIAL IM ONE (13:07)
[2023-10-03] MEDS: ACETAMINOPHEN 325 MG TABLET (FP) PO ONE (13:07)
== END 2023-10-03 13:31 | disposition home or self-care (01) ==
LOC: JER 11:35 → JERFT 11:35
PROC: 3E0233Z Introduction of Anti-inflammatory into Muscle, Percutaneous Approach (ICD-10-PCS; principal; 2023-10-03)
DX: M79.602 Pain in left arm (principal); R20.2 Paresthesia of skin; M54.12 Radiculopathy, cervical region
CPT/HCPCS: 93005; 93010; 99284-25

== ENCOUNTER 2023-12-09 16:07 | Emergency (ER) | payer OTHER ==
[2023-12-09 16:15] VITALS: BP 121/64; PULSE 79; RESP 18; TEMP 98; BMI 30.6
[2023-12-09] MEDS ORDERED: ALBUTEROL SO4 2.5/IPRATROPIUM 0.5 INH SOL 3 ML VIAL.NEB. NEB ONE (17:01)
[2023-12-09] MEDS: ALBUTEROL SO4 2.5/IPRATROPIUM 0.5 INH SOL 3 ML VIAL.NEB. NEB ONE (17:08)
== END 2023-12-09 18:28 | disposition home or self-care (01) ==
LOC: JER 16:07
PROC: 3E0F7GC Introduction of Other Therapeutic Substance into Respiratory Tract, Via Natural or Artificial Opening (ICD-10-PCS; principal; 2023-12-09)
DX: R05.9 Cough, unspecified (principal); R53.81 Other malaise; Z20.822 Contact with and (suspected) exposure to COVID-19
CPT/HCPCS: 0241U-QW; 71046-TC-FY; 99284-25

== ENCOUNTER 2024-04-13 21:29 | Emergency (ER) | payer OTHER ==
[2024-04-13 21:38] VITALS: BP 148/84; PULSE 73; RESP 18; TEMP 97.5; BMI 28.7
== END 2024-04-13 22:24 | disposition home or self-care (01) ==
LOC: JER 21:29
DX: R10.31 Right lower quadrant pain (principal); R10.32 Left lower quadrant pain; R19.7 Diarrhea, unspecified
CPT/HCPCS: 99282-25

== ENCOUNTER 2025-04-18 08:17 | Emergency (ER) | payer MEDICARE, OTHER ==
[2025-04-18 08:29] VITALS: BP 146/88; PULSE 96; RESP 18; TEMP 98; BMI 29.0
[2025-04-18] MEDS ORDERED: KETOROLAC TROMETHAMINE 30 MG/1 ML VIAL ONE (09:24)
[2025-04-18] MEDS ORDERED: LIDOCAINE 5% TOPICAL PATCH ONE (09:27)
[2025-04-18] MEDS: KETOROLAC TROMETHAMINE 30 MG/1 ML VIAL IM ONE (09:39)
[2025-04-18] MEDS: LIDOCAINE 5% TOPICAL PATCH TP ONE (09:39)
[2025-04-18 09:57] LABS: BASOPHILS # 0.03 x10^3/uL (0.01-0.08)
[2025-04-18 09:59] LABS: ABSOLUTE IMMATURE GRANULOCYTES 0.03 x10^3/uL (0.0-0.031); EOSINOPHIL % 0.1 % (0.7-5.8); EOSINOPHILS # 0.01 x10^3/uL (0.04-0.36); IMMATURE PLATELET FRACTION # 3.00 x10^3/uL; MCHC 33.3 g/dl (32.2-35.5); MEAN CELL VOLUME 93.9 fl (79.4-94.8); MEAN PLT VOLUME 10.0 fl (9.4-12.3); MONOCYTE # 0.83 x10^3/uL (0.24-0.86); MONOCYTE % 8.4 % (4.7-12.5); RDW 12.2 % (12.4-16.4)
[2025-04-18 10:35] LABS: ERYTHROCYTE SEDIMENTATION RATE 27 mm/hr (0-30)
[2025-04-18 10:48] LABS: HCV DIAGNOSTIC IN-HOUSE W/RFLX NON-REACTIVE (NONREACTIVE); HIV INTERPRETATION NEGATIVE (NEGATIVE)
[2025-04-18 11:00] LABS: GLUCOSE,RANDOM 117.0 mg/dL (74-106); TOT PROT 7.3 g/dl (6.4-8.2)
[2025-04-18 11:02] LABS: CO2 21.0 mmol/L (21-32)
[2025-04-18 11:03] LABS: ALK PHOS 74.0 U/L (40-150)
[2025-04-18 11:06] LABS: CREATININE 0.68 mg/dL (0.55-1.3); SGOT/AST 39.0 U/L (5-34); SGPT/ALT 24.0 U/L (0-55)
[2025-04-18] MEDS ORDERED: LIDOCAINE PATCH REMOVAL MC SCH (22:00)
== END 2025-04-18 11:33 | disposition home or self-care (01) ==
LOC: JERFT 08:17
PROC: 3E0233Z Introduction of Anti-inflammatory into Muscle, Percutaneous Approach (ICD-10-PCS; principal; 2025-04-18)
DX: U07.1 COVID-19 (principal); R51.9 Headache, unspecified; R68.83 Chills (without fever); M79.651 Pain in right thigh
CPT/HCPCS: 36415; 80053; 85025; 85651; 86803; 87389; 87637-QW; 99284-25